=== PATIENT | female | born 1990 | race Two or more races ===

== ENCOUNTER 2021-03-30 18:16 | Emergency (ER) | payer OTHER ==
[~2021-03-30] VITALS: Ht 165.1 cm; Wt 86.2 kg
[2021-03-30 18:39] VITALS: BP 110/73
== END 2021-03-30 19:27 | disposition home or self-care (01) ==
LOC: ER 18:21
DX: Z98.51 Tubal ligation status (principal); Z48.01 Encounter for change or removal of surgical wound dressing; Z90.49 Acquired absence of other specified parts of digestive tract